=== PATIENT | female | born 1970 | race Caucasian/White ===

== ENCOUNTER 2021-10-29 14:13 | Observation (INO) | payer SELFPAY ==
[2021-10-29 15:06] LABS: #Lymphocytes 1.4 thou/uL (1.20-3.40); #Monocytes 0.4 thou/uL (0.11-0.59); %Basophils 0.2 % (0.0-1.0); %Eosinophils 0.8 % (0.0-10.0); %Monocytes 7.5 % (0.0-10.0); %Neutrophils 62.6 % (42.0-75.0); Hemoglobin 13.7 g/dL (12.0-16.0); Mean Corpuscular HGB CONC 33.9 g/dL (32.0-36.0); Mean Platelet Volume 7.2 fL (7.4-10.4); Platelet Count 212 thou/uL (130-400); RBC Distribution Width 11.3 % (11.5-14.5); Red Blood Cell (RBC) Count 4.02 mill/uL (4.20-5.40); White Blood Cell (WBC) Count 4.7 thou/uL (4.8-10.8)
[2021-10-29 15:35] LABS: ALT (SGPT) 24 U/L (8-55); AST (SGOT) 26 U/L (5-34); Albumin 4.4 g/dL (3.5-5.0); Alkaline Phosphatase 73 U/L (40-110); Anion Gap 15 mmol/L (10-20); BUN (Urea Nitrogen) 11 mg/dL (9.8-20.1); Bilirubin, Total 0.5 mg/dL (0.2-1.2); Calc. Creatinine Clearance 0 mL/min (70-130); Calcium 9.2 mg/dL (7.8-10.44); Carbon Dioxide 26 mmol/L (22-29); Chloride 105 mmol/L (98-107); Estimated GFR 91; Globulin 3.3 g/dL (2.4-3.5); Glucose 120 mg/dL (70-105); Potassium 4.5 mmol/L (3.5-5.1); Protein, Total 7.7 g/dL (6.0-8.3); Sodium 141 mmol/L (136-145)
[2021-10-29] MEDS ORDERED: Clopidogrel Bisulfate 300 MG TAB ONE (17:22)
[2021-10-29] MEDS ORDERED: Senokot S 8.6-50 MG TAB PO PRN (18:29)
[2021-10-29] MEDS ORDERED: Acetaminophen 325 MG TAB PO PRN (18:29)
[2021-10-29] MEDS ORDERED: Ondansetron PF 4 MG/2 ML Vial IVP PRN (18:29)
[2021-10-29] MEDS ORDERED: Thiamine HCl 200 MG/2 ML VIAL IM SCH (20:00)
[2021-10-29] MEDS ORDERED: Meclizine HCl 25 MG TAB PO PRN (20:37)
[2021-10-29] MEDS ORDERED: Folic Acid 1 MG TAB PO SCH (21:00)
[2021-10-29] MEDS ORDERED: Atorvastatin Calcium 40 MG TAB PO SCH (21:00)
[2021-10-29] MEDS ORDERED: Pantoprazole 40 MG VIAL IVP SCH (21:00)
[2021-10-29] MEDS ORDERED: Multivit, Therapeutic 1 TAB PO SCH (21:00)
[2021-10-29] MEDS: Sodium Chloride 0.9% 1,000 ML IV SCH (21:38)
[2021-10-29 22:32] LABS: Amphetamine Not Detected (NotDetected); Barbiturates Screen Not Detected (NotDetected); Benzodiazepine Screen Not Detected (NotDetected); Cocaine Metabolite Screen Not Detected (NotDetected); Methadone Not Detected (NotDetected); Methamphetamine Not Detected (NotDetected); Opiate Screen Not Detected (NotDetected); Oxycodone Screen Not Detected (NotDetected); Phencyclidine (PCP) Not Detected (NotDetected); THC/Cannabinoid Screen Detected (NotDetected); Tricyclic Screen Not Detected (NotDetected)
[2021-10-29 23:54] VITALS: BMI 27.0
[2021-10-30 05:11] LABS: #Eosinphils 0.1 thou/uL (0.0-0.7); #Lymphocytes 1.6 thou/uL (1.20-3.40); #Monocytes 0.6 thou/uL (0.11-0.59); #Neutrophils 3.3 thou/uL (1.40-6.50); %Basophils 0.1 % (0.0-1.0); %Lymphocytes 28.6 % (21.0-51.0); %Monocytes 10.3 % (0.0-10.0); %Neutrophils 59.9 % (42.0-75.0); Hemoglobin 13.3 g/dL (12.0-16.0); Mean Corpuscular HGB CONC 33.3 g/dL (32.0-36.0); Mean Corpuscular Hemoglobin 33.5 pg (27.0-31.0); Mean Platelet Volume 7.4 fL (7.4-10.4); Platelet Count 184 thou/uL (130-400); RBC Distribution Width 11.4 % (11.5-14.5); Red Blood Cell (RBC) Count 3.95 mill/uL (4.20-5.40); White Blood Cell (WBC) Count 5.6 thou/uL (4.8-10.8)
[2021-10-30 05:39] LABS: Hemoglobin A1c 5.3 % (4.0-6.0)
[2021-10-30 05:40] LABS: ALT (SGPT) 18 U/L (8-55); AST (SGOT) 19 U/L (5-34); Albumin 3.7 g/dL (3.5-5.0); Alkaline Phosphatase 64 U/L (40-110); Anion Gap 15 mmol/L (10-20); BUN (Urea Nitrogen) 14 mg/dL (9.8-20.1); Bilirubin, Total 0.9 mg/dL (0.2-1.2); Calc. Creatinine Clearance 104 mL/min (70-130); Calcium 8.7 mg/dL (7.8-10.44); Carbon Dioxide 23 mmol/L (22-29); Cardiac Risk 4.7 (Less than 4.5); Chloride 107 mmol/L (98-107); Cholesterol 233 mg/dl (< 200 Desired); Estimated GFR 102; Globulin 2.7 g/dL (2.4-3.5); Glucose 100 mg/dL (70-105); HDL Cholesterol 50 mg/dL (>60 Neg Risk); LDL Cholesterol, Calculated 163 mg/dL; Potassium 3.7 mmol/L (3.5-5.1); Protein, Total 6.4 g/dL (6.0-8.3); Sodium 141 mmol/L (136-145); Triglycerides 102 mg/dL (Less than 150)
[2021-10-30] MEDS ORDERED: Thiamine 100 MG TAB PO SCH (09:00)
[2021-10-30] MEDS ORDERED: Pantoprazole 40 MG VIAL IVP SCH (09:00)
[2021-10-30] MEDS: Sodium Chloride 0.9% 1,000 ML IV SCH (11:06)
[2021-10-30 15:42] VITALS: TEMP 97.8
[2021-10-30 16:30] VITALS: BP 136/73
== END 2021-10-30 16:59 | disposition home or self-care (01) ==
LOC: ERS 14:13 → NEURO 17:47
PROVIDERS: ADMIT Family Medicine; ATTEND Family Medicine
DX: R20.2 Paresthesia of skin (principal); F41.9 Anxiety disorder, unspecified; F32.A Depression, unspecified; F10.10 Alcohol abuse, uncomplicated; G44.209 Tension-type headache, unspecified, not intractable; R42 Dizziness and giddiness; E78.5 Hyperlipidemia, unspecified; I08.8 Other rheumatic multiple valve diseases; Z85.3 Personal history of malignant neoplasm of breast; Z79.811 Long term (current) use of aromatase inhibitors; Z79.899 Other long term (current) drug therapy; Z88.5 Allergy status to narcotic agent; Z88.8 Allergy status to other drugs, medicaments and biological substances; Z20.822 Contact with and (suspected) exposure to COVID-19
CPT/HCPCS: 36415; 70450; 70551; 71045; 80053; 80061; 80306; 83036; 84443; 84484; 85025; 93005; 93306; 93880; 94760; 96372; 96374; 96376; C9113; G0378; J3411; J7050; U0003; U0005